=== PATIENT | male | born 1945 | race Caucasian/White ===

== ENCOUNTER → 2024-02-28 14:00 | Outpatient (REF) | payer MEDICARE, OTHER, SELFPAY | LOC: RAD 14:00 | PROVIDERS: ATTENDING PHYSICIAN Surgery Vascular Surgery; FAMILY PHYSICIAN Family Medicine | DX: I65.23 Occlusion and stenosis of bilateral carotid arteries (principal) | CPT/HCPCS: 93880 ==

== ENCOUNTER → 2024-05-18 08:18 | Outpatient (REF) | payer MEDICARE, OTHER, SELFPAY ==
[2024-05-18 09:24] LABS: % Basophils 0.9 % (0-2); % Eosinophils 1.9 % (0-6); % Immature Granulocytes 0.6 % (0-0.5); % Lymphocytes 16.9 % (20.5-51.1); % Monocytes 8.4 % (1.7-9.3); % Neutrophils 71.3 % (42.2-75.2); Absolute Basophils 0.1 10^3/uL (0-0.2); Absolute Eosinophils 0.2 10^3/uL (0-0.7); Absolute Immature Granulocytes 0.1 10^3/uL (0-0.05); Absolute Lymphocytes 1.3 10^3/uL (1.2-3.4); Absolute Monocytes 0.7 10^3/uL (0.1-0.6); Absolute Neutrophils 5.5 10^3/uL (1.4-6.5); Hematocrit 47.3 % (39.0-52.0); Hemoglobin 16.3 g/dL (13.0-18.0); Mean Corp Hgb Conc. 34.5 g/dL (33.0-37.0); Mean Corpuscular Hgb 29.9 pg (27.0-31.0); Mean Corpuscular Volume 86.6 fL (80.0-94.0); Mean Platelet Volume 10.2 fL (7.4-10.4); Nucleated Red Blood Cells % 0 % (-); Platelet Count 234 10^3/uL (130-400); Red Blood Cell Count 5.46 10^6/uL (4.70-6.10); Red Cell Dist. Width 13.8 % (11.5-14.5); White Blood Cell Count 7.8 10^3/uL (4.8-10.8)
[2024-05-18 09:53] LABS: ALT (SGPT) 54 U/L (0-50); AST (SGOT) 36 U/L (17-59); Albumin 4.3 g/dl (3.5-5.0); Alkaline Phosphatase 88 U/L (38-126); Blood Urea Nitrogen 16 mg/dl (9-20); Calcium 9.7 mg/dl (8.4-10.2); Carbon Dioxide 25 mmol/L (22-30); Chloride 104 mmol/L (98-107); Glucose 89 mg/dl (70-99); Potassium 4.6 mmol/L (3.5-5.1); Sodium 141 mmol/L (135-145); Total Bilirubin 0.8 mg/dl (0.2-1.3); Total Protein 6.8 g/dl (6.3-8.2); eGFR 55.88
[2024-05-18 10:28] LABS: TSH 4.15 uIU/ml (0.47-4.68)
== END ==
LOC: REG 08:18
PROVIDERS: ATTENDING PHYSICIAN Nurse Practitioner Family
DX: R41.0 Disorientation, unspecified (principal); G31.84 Mild cognitive impairment of uncertain or unknown etiology; E78.2 Mixed hyperlipidemia; I25.10 Atherosclerotic heart disease of native coronary artery without angina pectoris; Z95.5 Presence of coronary angioplasty implant and graft; Z79.01 Long term (current) use of anticoagulants; N18.31 Chronic kidney disease, stage 3a; I12.9 Hypertensive chronic kidney disease with stage 1 through stage 4 chronic kidney disease, or unspecified chronic kidney disease; I65.23 Occlusion and stenosis of bilateral carotid arteries; I73.9 Peripheral vascular disease, unspecified
CPT/HCPCS: 36415; 80053; 84443; 85025

== ENCOUNTER → 2024-05-28 08:00 | Outpatient (REF) | payer MEDICARE, OTHER, SELFPAY | LOC: MRI 08:00 | PROVIDERS: ATTENDING PHYSICIAN Nurse Practitioner Family; FAMILY PHYSICIAN Family Medicine | DX: R41.0 Disorientation, unspecified (principal) | CPT/HCPCS: 70553; A9575 ==

== ENCOUNTER → 2024-08-29 08:47 | Outpatient (REF) | payer MEDICARE, OTHER, SELFPAY | LOC: RAD 08:47 | PROVIDERS: ATTENDING PHYSICIAN Registered Nurse | DX: I73.9 Peripheral vascular disease, unspecified (principal); I65.23 Occlusion and stenosis of bilateral carotid arteries | CPT/HCPCS: 93880; 93922; 93925 ==

== ENCOUNTER → 2024-09-01 11:48 | Outpatient (REF) | payer MEDICARE, OTHER, SELFPAY | LOC: RAD 11:48 | PROVIDERS: ATTENDING PHYSICIAN Nurse Practitioner Family | DX: M79.661 Pain in right lower leg (principal) | CPT/HCPCS: 93971 ==

== ENCOUNTER → 2024-11-24 08:48 | Outpatient (REF) | payer MEDICARE, OTHER, SELFPAY | LOC: RAD 08:48 | PROVIDERS: ATTENDING PHYSICIAN Family Medicine | DX: R31.29 Other microscopic hematuria (principal) | CPT/HCPCS: 76770 ==

== ENCOUNTER → 2025-03-13 08:51 | Outpatient (REF) | payer MEDICARE, OTHER, SELFPAY | LOC: RAD 08:51 | PROVIDERS: ATTENDING PHYSICIAN Surgery Vascular Surgery; FAMILY PHYSICIAN Family Medicine | DX: I73.9 Peripheral vascular disease, unspecified (principal); I65.23 Occlusion and stenosis of bilateral carotid arteries | CPT/HCPCS: 93880; 93922; 93925 ==

== ENCOUNTER 2025-03-21 08:38 | Inpatient (IN) | payer MEDICARE, OTHER, SELFPAY ==
[2025-03-19] VITALS (7 sets, daily range): BP systolic 154–171; BP diastolic 70–105; BMI 23.0
[2025-03-19 14:16] LABS: Hematocrit 49.2 % (39.0-52.0); Hemoglobin 16.4 g/dL (13.0-18.0); Mean Corp Hgb Conc. 33.3 g/dL (33.0-37.0); Mean Corpuscular Volume 89.3 fL (80.0-94.0); Nucleated Red Blood Cells % 0 % (-); Platelet Count 234 10^3/uL (130-400); Red Cell Dist. Width 13.9 % (11.5-14.5)
--- NOTE | 2025-03-19 14:25 | ED.GENMED ---
History of Present Illness
General
Chief Complaint: Change in Mental Status
Source: patient and family
Exam Limitations: dementia
Time Seen by Provider: 03/19/25 14:06
Nursing documentation reviewed up to this point in time: agreed with
History of Present Illness
History of Present Illness:
Patient is an 79-year-old male with a history of dementia, CAD hypertension hyperlipidemia AR who presents to the ER for evaluation. Daughter at bedside reports patient does have dementia diagnosed in 2019 however has worsened over the past 2 days.
She reports that he tried to walk out of his house and when his tried to stop him he fell sustaining skin tears to his hands. He did not hit his head. His was there with him. Daughter reports he is definitely more confused than normal.
Daughter reports this is the first time patient tries to leave his house.
Patient is awake alert he is unable to give history he does not recall falling. He is confused .
Past History
Past History
ED Past Medical History: HTN, Hypercholesterolemia and Other (left lung scar tissue, Pleural effusion, Pericarditis,)
ED Past Surgical History: Cardiac (Stents), Orthopedic and Other (Hernia)
Social History
Tobacco: Former smoker
Alcohol: None
Drug: None
Personal:
Living: with family
Employment: Employed
Family History
Family History: Negative Early CAD (no hx of DVT, PE)
Review of Systems
Review of Systems
Unable to obtain full review of systems at this time due to: dementia
Other source history: family
All Other Systems: ROS reviewed and negative except as documented in HPI and ROS
Phy Exam
General Physical Exam
General Presentation: no apparent distress
General age: appears stated age
General Skin: warm and dry
General Habitus: normal
General Mental: confused
General Hydration: dry mucous membranes
ENT Exam
ENT Exam: EOMI
Cardiovascular Exam
Cardiovascular Exam: regular rate/rhythm, no murmur and normal peripheral pulses
Pulmonary Exam
Pulmonary Exam: lungs clear and no respiratory distress
Neurological Exam
Neurological Exam: alert and oriented x3
Musculoskeletal Exam
Musculoskeletal Exam: full ROM and other (Abrasions to bilateral hands no obvious head injury no bony cervical thoracic or lumbar tenderness full range of motion all extremities)
Skin Exam
Skin Exam: normal color and warm/dry
Psychiatric Exam
Psychiatric Exam: normal mood/affect
Course
Orders/Labs/Results
Orders:
Orders
03/19/25 Lunch
Regular
At Your Request: Limited Participation
03/19/25 14:09
CBC/With Diff [Complete Blood Count/With Diff] Urgent
Comprehensive Metabolic Panel Urgent
Creatine Phosphokinase Urgent
Comment: ADD ON
03/19/25 14:32
0.9% Sodium Chloride 500 ml [Nss] 500 ml IV BOLUS
03/19/25 15:02
Case Management Consult ONCE
Case Management Consult: Discharge Planning
Requested By:: PT/FAMILY
03/19/25 15:39
UA Reflex to Culture [Urinalysis Reflex To Culture] Urgent
Date Specimen was Collected: 03/19/25
Time Specimen was Collected: 15:38
Urine Microscopic Reflex Cult Urgent
03/19/25 16:58
CT Head W/o Iv Contrast Urgent
Comment:
Reason For Exam: confusion/fall
03/19/25 17:10
Electrocardiogram (*1) Stat
Reason for Study: Other
Other Reason for Exam: chest pain
EKG- Treatment ONCE
03/19/25 18:03
Add On- LAB Routine
Tests Added?: Creatine Kinase
03/19/25 19:17
Admit/Transfer Patient As Directed
Co-Sign Provider:
Level of Care: Observation services
Assign to:: Medical/Surgical
Physician / Group: Mckay Ventura
Diagnosis: Dementia Delirium Unclear Etiology
Reason for Hospitalization: Dementia Delirium Unclear Etiology
PRN Pain Medication Management As Directed
May give lesser potent ordered pain med per pt: Yes
preference::
Protocol:: Medication orders for pain may be administered in a
manner that supports deferring to patient preference
when the pt is:
- Requesting an ordered lesser potent pain medication.
Least to most potent pain medications are defined
as: acetaminophen < NSAID < tramadol < opioids
(morphine, oxycodone, hydromorphone).
- Requesting a lesser dose of the same medication IF
ORDERED.
- Requesting a less intrusive route of administration
if both routes are prescribed by the provider (PO <
IV).
03/19/25 19:20
Code Status As Directed
Resuscitation Status: Full Code
03/19/25 20:48
Acetaminophen [Tylenol] 650 mg PO Q4HPRN PRN
Bisacodyl [Dulcolax] 10 mg RECTAL [id number] PRN
Docusate W/Senna [Senokot-S] 1 tablet PO BIDPRN PRN
Polyethylene Glycol Powder [Miralax] 17 grams PO DAILYPRN PRN
Prochlorperazine [Compazine] 5 mg IV Q6HPRN PRN
Risperidone [Risperdal] 0.25 mg PO Q6HPRN PRN
03/19/25 20:48
Activity As Directed
Activity Level: With Assistance
Precautions As Directed
Type of Precautions: Other
Comment: fall precautions
Vital Signs As Directed
Frequency: Per unit guidelines
Restraints - Non Violent As Directed
Justification-Patient:: 2-Protective Intervention
Restraint Type-: Four Side Rails
Lola-chair
Apply From (date): 03/19/25
Apply from (time): 19:24
Remove (date): 03/20/25
Remove (time): 23:59
DX Deep Vein Thrombosis Video Routine
03/19/25 22:00
Artificial Tears (Pf) [Refresh Eye Drops (Pf)] 1 drops OPHTH QID
Risperidone [Risperdal] 0.25 mg PO HS
03/20/25 06:00
Basic Metabolic Panel IN AM
Complete Blood Count/No Diff IN AM
Magnesium IN AM
03/20/25 08:00
Aspirin Low Dose EC [Aspir Low (Enteric Coated)] 81 mg PO DAILY
Finasteride [Proscar] 5 mg PO DAILY
Metoprolol Xl [Toprol Xl] 12.5 mg PO DAILY
Multivitamin [Theragran] 1 tablet PO DAILY
Rosuvastatin Calcium [Crestor] 20 mg PO DAILY
03/20/25 18:00
Enoxaparin Sodium [Lovenox] 40 mg SC QPM
Abnormal Lab Results
03/19/25 03/19/25
14:09 15:39
Absolute Neuts (auto) 8.0 H 10^3/uL
(1.4-6.5)
Absolute Lymphs (auto) 0.9 L 10^3/uL
(1.2-3.4)
Absolute Monos (auto) 0.7 H 10^3/uL
(0.1-0.6)
Neutrophils % 82.2 H %
(42.2-75.2)
Lymphocytes % 9.2 L %
(20.5-51.1)
Sodium 147 H mmol/L
(135-145)
Potassium 5.5 H mmol/L
(3.5-5.1)
Chloride 113 H mmol/L
(98-107)
Glucose 143 H mg/dl
(70-99)
Creatine Kinase 51 L U/L
(55-170)
Ur Occult Blood Reflex 1+ A
(Negative)
Urine Albumin (Reflex) 1+ A
(Neg - Trace)
03/19/25 14:09
03/19/25 14:09
Vital Signs
Initial and Last Documented VS:
Initial Vital Signs
Temp Pulse Resp BP Pulse Ox
98.3 F 100 16 154/90 95
03/19/25 13:09 03/19/25 13:09 03/19/25 13:09 03/19/25 13:09 03/19/25 13:09
Last Documented Vital Signs
Temp Pulse Resp BP Pulse Ox
97.4 F 73 16 171/83 93
03/19/25 20:57 03/19/25 20:57 03/19/25 20:57 03/19/25 20:57 03/19/25 20:57
MDM/Problems Addressed
Differential Diagnosis Includes:
Not limited to worsening dementia, dehydration UTI abrasions
MDM/Problems Addressed:
Patient is an 79-year-old male with dementia however not on medication presents for increasing confusion. Patient tried to walk out of his house try to stop him he did fall and hit his hands. He does have abrasions to his hands but did not
hit his head was there to witness. He is not on blood thinners. He presents awake alert he is confused more confusion than normal as per daughter. He does follow commands afebrile white count normal hemoglobin stable. He appears minimally
dehydrated was given a small 500 bolus of fluids sodium was elevated at 147 potassium 5.5 normal renal function. Urinalysis done however micro pending does not appear infected. Will order CT head however patient becoming agitated and daughter does
not feel that will be able to care for patient at home. Patient was seen by case management he will need to be involved for possible placement. Daughter also requestsing possible psych consult
Chronic conditions affecting care:
dementia
*Radiology
Radiology exam reviewed: radiology read reviewed
*Pulse Oximetry
SaO2: 95
Oxygen Mode of Delivery: Room air
Patient hypoxic: no
*EKG
Interpreted by ED Provider?: Yes
Interpretation: normal
Comparison EKG: no comparison EKG present
Heart Rate: 69
Rate: normal
Rhythm: sinus
*Critical Care Note
Total Time (30-74mins, 75-104mins- exclusive of procedures): Not Applicable
ED Attending Note
-
Portions of this chart may have been created with voice recognition software.� Occasional wrong word or��sound alike� substitutions may have occurred due to the inherent limitations of voice recognition software.
Discharge Plan
Departure
Patient Disposition: Admit
Date of Disposition: 03/19/25
Time of Disposition: 17:08
Admit to: Med/Surg
Admit to doctor: hospitalist
Presentation/result/management discussed w/ accepting MD/DO: Hospitalist
Patient with high blood pressure during this ER visit?: Yes
Condition: Fair
Covid-19: Not Applicable
Discharge Problem:
Altered mental status
Interventions
Interventions:
*Risk Screen - Suicide Last Done: 03/19/25 13:09
*Neglect/Abuse Screening Last Done: 03/19/25 13:09
*ED COVID-19 Vaccine History Last Done: 03/19/25 13:09
*Nursing Disposition Last Done: 03/19/25 20:45
ED- Neurological Assessment Last Done: 03/19/25 13:17
Discharge Date and Time
Discharge Date/Time: 03/19/25 20:45
[2025-03-19] MEDS: NSS 500 IV (14:39)
[2025-03-19 14:48] LABS: ALT (SGPT) 33 U/L (0-50); AST (SGOT) 25 U/L (17-59); Albumin 4.6 g/dl (3.5-5.0); Alkaline Phosphatase 80 U/L (38-126); Blood Urea Nitrogen 18 mg/dl (9-20); Calcium 9.8 mg/dl (8.4-10.2); Carbon Dioxide 26 mmol/L (22-30); Chloride 113 mmol/L (98-107); Glucose 143 mg/dl (70-99); Potassium 5.5 mmol/L (3.5-5.1); Sodium 147 mmol/L (135-145); Total Protein 7.3 g/dl (6.3-8.2); eGFR > 60.00
--- NOTE | 2025-03-19 15:55 | CM ---
Received consult, met with daughter Cherry at bedside. Pt lives with his in 1 story home, 2 [address]. Independent at baseline with ADLs, personal care and ambulation. NO DME.
Per Cherry, pt has history of dementia, becoming increasingly confused, fell earlier today, this is his first fall.
Pt and have someone who comes in twice a week to help with cleaning and meal prep, also have someone who comes once a week to help with paperwork, pt's 's brother recently.
Family is concerned pt may try to leave home at night, they do have cameras and alarms set up.
They are interested in additional help at home and possibly looking at a Memory Care Unit for him.
Provided information for [facility] as well as Assisted Living list and list of private pay caregiver agencies.
No other CM needs at this time.
PCP: Juan Aggarwal
Pharmacy: [facility]
[2025-03-19 16:18] LABS: Urine Character Slightly Cloudy (Clear)
--- NOTE | 2025-03-19 17:14 | HPS.HSE ---
Family Physician
-
Family Physician: Juan Aggarwal
Chief Complaint
-
Confusion
History of Present Illness
79M hx dementia, CAD stent, hypertension, hyperlipidemia p/w acute agitation confusion with associate fall. Patient himself poor historian, significant short term memory issues, most of history from records and patient's daughter and 's
reports. Typically AOx3 at baseline, diagnosed with dementia 2019. Patient has had progressive short term memory issues since diagnosis. Meds are managed by . Baseline ambulatory without need for assist device. Patient reportedly was
increasingly agitated at home before he ran out and fell on the steps to his house, witnessed by . No head trauma or loss of consciousness noted. Patient's notes that patient has been having progressive intermittent visual hallucinations
for months. Endorses sundowning. Patient at times up and walking around in the house at night for no apparent reason. Family denies history of falls. Patient denies any significant pain at this time, dysuria, constipation, diarrhea, fever or
chills. Strength 5/5 all extremities no significant limitations on range of motions noted. Labs noted mild hypernatremia and hyperkalemia. Initially hypertensive on ED evaluation 171/108 likely d/t agitation, blood pressure since improved to
154/90. Stable respiratory status on room air. CT head noted no acute abn's. Patient also noted vision issues for the past few months blurry itchy watery typically takes Claritin Daily. Family reports recent work-up with ophthalmology with no
acute issues found.
Medical History
Past Medical History
Past Medical History: Reports Other (as above)
Past Surgical History: Reports Other (as above)
Social History
Tobacco: Non-smoker
Alcohol: None
Drug: None
Personal:
Living: With Family
Family History
Family History: Not pertinent (reviewed)
Allergies / Home Medications
Allergies reflects when Allergies were last updated in [facility].
Home Medications with original date entered in [facility]
Allergy/Medication List:
Allergies
Allergy/AdvReac Type Severity Reaction Status Date / Time
Penicillins Allergy Mild vomitting Verified 03/24/22 16:16
seasonal Allergy runny nose Uncoded 03/24/22 16:16
Home Medications
aspirin 81 mg tablet,delayed release 81 mg PO DAILY 03/19/25
finasteride 5 mg tablet 5 mg PO DAILY 03/19/25
loratadine 10 mg tablet 10 mg PO DAILY PRN seasonal allergies 03/19/25
losartan 25 mg tablet 25 mg PO DAILY 03/19/25
metoprolol succinate 25 mg tablet,extended release 24 hr 12.5 mg PO DAILY 03/19/25
multivitamin 1 tab PO DAILY 03/19/25
rosuvastatin 20 mg tablet 20 mg PO DAILY 03/19/25
Review of Systems
-
A 12 point ROS was completed and negative except as noted: Yes
Constitutional: Reports Other (as below)
Physical Exam
Vital Signs
Vital Signs
Temp Pulse Resp BP Pulse Ox
98.3 F 71 29 166/70 95
03/19/25 13:09 03/19/25 15:35 03/19/25 15:35 03/19/25 15:35 03/19/25 17:09
Physical Exam
General: Other (as below)
Laboratory Results
-
03/19/25 14:09
03/19/25 14:09
Laboratory Results
Total Bilirubin 0.8 mg/dl (0.2-1.3) 03/19/25 14:09
AST 25 U/L (17-59) 03/19/25 14:09
ALT 33 U/L (0-50) 03/19/25 14:09
Alkaline Phosphatase 80 U/L (38-126) 03/19/25 14:09
Impression/Plan
-
ROS
General: Denies fever chills night sweats unexpected weight loss
Neuro: Denies seizure shaking loss of consciousness dizziness vertigo
Psych: reported visual hallucinations confusion
Endocrine: Denies polyuria polydipsia polyphagia heat/cold intolerance
HEENT: Denies blindness epistaxis reports blurry vision itchy eyes watering
Pulmonary: denies coughing hemoptysis sneezing sob dyspnea on exertion
Cardiovascular: denies chest pain palpitations leg swelling
Hematology: denies signs symptoms of anemia easy bruising/bleeding
Gastrointestinal: denies nausea vomiting diarrhea constipation hematemesis hematochezia melena
Genito-Urinary: denies retention incontinence dysuria
Musculoskeletal: denies joint pain weakness
Dermatology: denies rash reports laceration hands from fall
Physical Exam
General: No pallor, cyanosis, or jaundice.
HEENT: Throat clear. EOMI Normocephalic atraumatic
NECK: Supple. No JVD Carotid Bruits
RESPIRATORY: Lungs clear to auscultation. No crackles wheezes stridor
CVS: S1, S2 normal. RRR. No murmur, rub or gallop.
ABDOMEN: Soft, non-tender. No distension. BS+/normal.
EXTREMITIES: No peripheral cyanosis or edema. strength 5/5 all ext's, no significant impairment range of motion ext's noted
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 Able to perform immediate recall, unable to perform delayed recall.
IMPRESSION:
79M hx dementia, b/l carotid stenosis PAD (has regular follow up visits, with associate studies, with vascular Dr Lobo) CAD stent, HTN, HLD p/w acute agitation confusion/delirium unclear etiology resulting in fall with minor injury to hands, no head
trauma. Typically AOx3 baseline with short term memory issues and confusion. Noted history intermittent visual hallucinations, sundowning, behavioral disturbances at night. Patient also has hx seasonal allergies for which he typically takes
Claritin daily. Medications managed by who lives with him
PLAN:
#Possible Acute Delirium Dementia unclear etiology vs progressive Dementia with behavioral disturbances
med/surg Observation
ST/PT/OT eval
fall precautions
CT Head appreciated no acute Abn's
Check Brain MRI
EKG appreciated NSR, no QT prolongation
start risperdal 0.25 mg PO HS
risperdal 0.25 mg Q6HPRN agitation confusion (consider low dose IV haldol if unable to take PO severely agitated)
Psych eval requested
Non-violent restraints prn
#Mild Hypernatremia
#Mild Hyperkalemia
monitor, possibly dehydration, received IVF bolus in ED
#HTN
cont home metoprolol with holding parameters
hold home losartan for now d/t hyperkalemia as above
monitor and titrate antihypertensive regimen as necessary
#HLD
#CAD hx stent
cont ASAS statin
#Allergic Rhinitis, itchy/watery eyes
hold home claritin for now, possible anticholinergic effects exacerbating confusion delirium
Artificial Tears supportive care
#B/L Carotid Stenosis
#PAD
cont outpt follow up with Vascular
DVT ppx Lovenox
Full Code as per patient and patient's daughter Cherry
discussed with patient, patient's Marie, and patient's daughter Cherry
I spent a total of 76 minutes with the patient or on the floor. More than 50% of this time involved counseling and coordination of care.
[2025-03-19 18:04] LABS: Urine Red Blood Cell 0-2 /HPF (0-2); Urine Squamous Cell 0-2 /LPF (Few); Urine White Cell 0-2 /HPF (0-5)
[2025-03-19] MEDS: TYLENOL 650 MG PO (21:11)
[2025-03-19] MEDS: REFRESH EYE DROPS (PF) 1 DROPS OPHTH (21:11)
[2025-03-19] MEDS: RISPERDAL 0.25 MG PO ×2 (21:12→21:33)
[2025-03-19] MEDS: HALDOL 0.5 MG IV (23:08)
[2025-03-20 02:22] VITALS: BP 148/82
--- NOTE | 2025-03-20 02:53 | PTCARENOTE ---
2100 pt arrived from ed, unsteady on feet walked from stretcher to bed. pt oriented to self- confused, angry, would not take redirection. pt has an order for restraints for 4 side rails and jitendra chair. pt would not stay in bed or listen to RN, kept
setting up bed alarm and trying to leave.
2200 pt became combative and was swinging his hand at RN, saying he is getting out of here. Pt already had schedule Risperdal. S/W GABRIEL Garzon - okay to give prn Risperdal and new restraint order for b/ wrist. pt continue to be restless in bed, pulling
at restraints, and kicking. S/w GABRIEL Garzon - Given IV Haldol w/ no effect.
0000 pt continues to be restless, restraints maintained. occassionally yelling out but continues to kick and attempting to remove restraints.
[2025-03-20] MEDS: RISPERDAL 0.25 MG PO ×4 (04:21→22:39)
[2025-03-20 04:27] LABS: Hematocrit 46.0 % (39.0-52.0); Hemoglobin 16.1 g/dL (13.0-18.0); Mean Corp Hgb Conc. 35.0 g/dL (33.0-37.0); Mean Corpuscular Volume 86.0 fL (80.0-94.0); Platelet Count 223 10^3/uL (130-400); Red Cell Dist. Width 13.9 % (11.5-14.5)
[2025-03-20 04:54] LABS: Blood Urea Nitrogen 16 mg/dl (9-20); Calcium 9.6 mg/dl (8.4-10.2); Carbon Dioxide 19 mmol/L (22-30); Chloride 115 mmol/L (98-107); Estimated Creatinine Clearance 65 ml/min; Glucose 125 mg/dl (70-99); Magnesium 2.0 mg/dl (1.6-2.3); Potassium 4.4 mmol/L (3.5-5.1); Sodium 144 mmol/L (135-145); eGFR > 60.00
[2025-03-20 07:00] VITALS: BP 174/91
--- NOTE | 2025-03-20 07:39 | W.PN.HOSP.TC ---
Today's Communication/Plan
-
Brain MRI if possible, would avoid sedatives as likely will exacerbate dementia confusion agitation
cont risperidone as per psych
ST/PT/OT
Assessment / Plan
Assessment / Plan
Physical Exam
General: No pallor, cyanosis, or jaundice.
HEENT: Throat clear. EOMI Normocephalic atraumatic
NECK: Supple. No JVD Carotid Bruits
RESPIRATORY: Lungs clear to auscultation. No crackles wheezes stridor
CVS: S1, S2 normal. RRR. No murmur, rub or gallop.
ABDOMEN: Soft, non-tender. No distension. BS+/normal.
EXTREMITIES: No peripheral cyanosis or edema. strength 5/5 all ext's, no significant impairment range of motion ext's noted
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 Able to perform immediate recall, unable to perform delayed recall.
IMPRESSION:
79M hx dementia, b/l carotid stenosis PAD (has regular follow up visits, with associate studies, with vascular Dr Lobo) CAD stent, HTN, HLD p/w acute agitation confusion/delirium unclear etiology resulting in fall with minor injury to hands, no head
trauma. Typically AOx3 baseline with short term memory issues and confusion. Noted history intermittent visual hallucinations, sundowning, behavioral disturbances at night. Patient also has hx seasonal allergies for which he typically takes
Claritin daily. Medications managed by who lives with him
PLAN:
#Possible Acute Delirium Dementia unclear etiology vs progressive Dementia with behavioral disturbances
med/surg Observation
ST/PT/OT eval appreciated outpt therapy recommended
fall precautions
CT Head appreciated no acute Abn's
Check Brain MRI
EKG appreciated NSR, no QT prolongation
started risperdal 0.25 mg PO HS adjusted to 5PM as per Psych
risperdal 0.25 mg Q6HPRN agitation confusion (consider low dose IV haldol if unable to take PO severely agitated)
Psych eval appreciated
Non-violent restraints prn
#Mild Hypernatremia
#Mild Hyperkalemia
monitor, possibly dehydration, received IVF bolus in ED
electrolyte abn's since resolved
#HTN
cont home metoprolol with holding parameters
hold home losartan for now d/t hyperkalemia as above
monitor and titrate antihypertensive regimen as necessary
#HLD
#CAD hx stent
cont ASAS statin
#Allergic Rhinitis, itchy/watery eyes
hold home claritin for now, possible anticholinergic effects exacerbating confusion delirium
Artificial Tears supportive care
#B/L Carotid Stenosis
#PAD
cont outpt follow up with Vascular
DVT ppx Lovenox
Full Code as per patient and patient's daughter Cherry
discussed with patient and patient's Marie
I spent a total of 45 minutes with the patient or on the floor. More than 50% of this time involved counseling and coordination of care.
Anticipated Discharge: 24 - 48 hours
Subjective/Interval History
-
Date of Service: March 20, 2025
No acute distress. sitting up comfortably in chair. AOx2 disoriented to time. Overnight events noted agitation required prn antipsychotics without much improvement.
Objective Data
-
Labs:
Laboratory Results
03/20/25
04:18
WBC 14.7 H
Hgb 16.1
Hct 46.0
Plt Count 223
Sodium 144
Potassium 4.4
Chloride 115 H
Carbon Dioxide 19 L
BUN 16
Creatinine 0.9
Glucose 125 H
Calcium 9.6
Vital Signs:
Vital Signs
Temp Pulse Resp BP Pulse Ox
97.0 F 99 18 148/82 94
03/19/25 22:28 03/20/25 02:22 03/19/25 22:28 03/20/25 02:22 03/19/25 22:28
I&O
03/19/25 03/20/25 03/21/25
06:59 06:59 06:59
Intake Total 400 / 400
Balance 400 / 400
[2025-03-20] MEDS: THERAGRAN 1 TABLET PO (08:26)
[2025-03-20] MEDS: TOPROL XL 12.5 MG PO (08:26)
[2025-03-20] MEDS: PROSCAR 5 MG PO (08:26)
[2025-03-20] MEDS: CRESTOR 20 MG PO (08:26)
[2025-03-20] MEDS: ASPIR LOW (ENTERIC COATED) 81 MG PO (08:26)
[2025-03-20] MEDS: REFRESH EYE DROPS (PF) 1 DROPS OPHTH ×4 (08:27→20:32)
--- NOTE | 2025-03-20 08:55 | PTOTSP ---
Speech Language Pathology
Pt seen for cognitive-linguistic evaluation via the [facility] Mental Status ([facility]) Examination. Pt with a score of 7/30, indicative of severe cognitive deficits. Able to recall 1/5 words immediately, 0 following a 2 minute delay.
Cueing did not increase accuracy. U
Pt also seen for clinical bedside swallow evaluation. P.O. trials of puree, regular solids, and thin liquids provided. Adequate mastication, bolus formation, and A-P transit noted with no oral residue. No overt signs of aspiration.
Recommend:
(1) Regular solids/thin liquids
(2) General aspiration precautions
(3) Meds as tolerated
(4) CORPORATE SAFETY DIRECTOR to follow for cognitive tx if appropriate pending further workup (if MRI shows acute issue). Given no improvement on recall with cues, pt unlikely to benefit from cognitive tx at this stage of dementia otherwise
--- NOTE | 2025-03-20 11:04 | CS.PSYCHR ---
Consult Summary - Psychiatry
-
Patient is an 79 year old male patient, seen for Psychiatric consultation with a history of dementia and reported agitation. Patient is a poor historian, confused but conversant and cooperative. Attempted to reach to but there was no answer.
Patient has been admitted to the hospital with acute agitation, confusion with associate fall at home. Patient reportedly diagnosed with dementia 2019 but said to be AAOx3 at home at baseline. Ambulates without assistance at home. Appears to have
significant short term memory issues, thought the year was 1997 and was unsure if he had a per RN. 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 He was able to share details on how the different
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 He appears excited to tell us al about this. He does tell us he thinks his is coming here, he did know he was at but did not seem to know why. He tells us he has 2 daughters.
Patient reportedly was increasingly agitated at home before he ran out and fell on the steps to his house, witnessed by . No history of previous falls. No head trauma or loss of consciousness noted.
Patient's had reported that patient has been having progressive intermittent visual hallucinations for months. Endorses sundowning. RN notes that overnight he wanted to leave his room. He was temporally restrained overnight for his safety.
Today, he is up in the chair and not restrained. No agitation noted at this time. Patient did require one dose of Haldol overnight for reported agitation that appears to be related to him being denied the ability to walk around and/or leave his room.
Impression/Recommendations: Dementia, likely progressive with behavioral disturbances vs. delirium of unknown etiology - CT head with no acute abnormalities, Brain MRI has been ordered. Would continue with Risperdal 0.25mg but change time to 5pm to
help prevent sundowning/increased evening confusion leading to agitation. Continue with PRN doses as well. Promote reorientation and as much independence that can safely be given.
--- NOTE | 2025-03-20 14:36 | PTCARENOTE ---
Patient restless, continually trying to get out of bed. Assisted to bathroom to void and have a BM gait steady. Assisted into chair with chair alarm. Needs frequent redirecting. visiting at present .
[2025-03-20 15:00] VITALS: BP 157/76
[2025-03-20] MEDS: LOVENOX 40 MG SC (16:09)
--- NOTE | 2025-03-20 17:13 | PTCARENOTE ---
Patient restless , repetitive questions, forgetful and oriented to himself only . Able to follow simple commands. After visit , pt was agitated, unable to redirect, was wandering out of his room and into other rooms looking for 'that woman
who took all my stuff' Unable to redirect, continually verbalizing how upset he was that 'she took my stuff' . Needs constant supervision and assistance at present. Will follow commands. Did take his scheduled Risperdal and PRN Risperdal with
minimal effect at present. Unable to complete MRI , hospitalist aware . 1:1 supervision maintained by staff for patient safety.
[2025-03-20] MEDS: MELATONIN 5 MG PO (20:32)
[2025-03-20] MEDS: RISPERDAL M-TAB (ORALLY DISINTEGRATING) 0.25 MG PO (20:32)
[2025-03-20 23:38] VITALS: BP 145/60
[2025-03-21] MEDS: HALDOL 0.5 MG IV (01:38)
--- NOTE | 2025-03-21 02:18 | W.PN.UPDATE ---
Update Note
Progress Note Update
Reported by the nursing staff that the patient is agitated, trying to get out of bed multiple times and staff not able to redirect.
During the shift, Extra dose or Risperdal 0.25 mg given, few hours later patient started to be agitated again one time dose of IV Haldol 0.5mg given. Patient is tried to rip his IV access. Soft restriant ordered.
[2025-03-21 07:15] VITALS: BP 142/94
[2025-03-21] MEDS: THERAGRAN 1 TABLET PO (07:41)
[2025-03-21] MEDS: REFRESH EYE DROPS (PF) 1 DROPS OPHTH ×4 (07:41→19:44)
[2025-03-21] MEDS: PROSCAR 5 MG PO (07:41)
[2025-03-21] MEDS: RISPERDAL 0.25 MG PO ×2 (07:41→19:44)
[2025-03-21] MEDS: ASPIR LOW (ENTERIC COATED) 81 MG PO (07:41)
[2025-03-21] MEDS: TOPROL XL 12.5 MG PO (07:47)
--- NOTE | 2025-03-21 07:49 | W.PN.HOSP.TC ---
Today's Communication/Plan
-
see a/p
Assessment / Plan
Assessment / Plan
Physical Exam
General: No pallor, cyanosis, or jaundice.
HEENT: Throat clear. EOMI Normocephalic atraumatic
NECK: Supple. No JVD Carotid Bruits
RESPIRATORY: Lungs clear to auscultation. No crackles wheezes stridor
CVS: S1, S2 normal. RRR. No murmur, rub or gallop.
ABDOMEN: Soft, non-tender. No distension. BS+/normal.
EXTREMITIES: No peripheral cyanosis or edema. strength 5/5 all ext's, no significant impairment range of motion ext's noted
EMS COORDINATOR: AOx2 disoriented to time, significant short term memory issues noted conversant coherent for the most part. Able to perform immediate recall, unable to perform delayed recall.
IMPRESSION:
79M hx dementia, b/l carotid stenosis PAD (has regular follow up visits, with associate studies, with vascular Dr Lobo) CAD stent, HTN, HLD p/w acute agitation confusion/delirium unclear etiology resulting in fall with minor injury to hands, no head
trauma. Typically AOx3 baseline with short term memory issues and confusion. Noted history intermittent visual hallucinations, sundowning, behavioral disturbances at night. Patient also has hx seasonal allergies for which he typically takes
Claritin daily. Medications managed by who lives with him
PLAN:
#Acute Delirium Dementia vs progressive Dementia with behavioral disturbances
med/surg
ST/PT/OT eval appreciated outpt therapy recommended
fall precautions
CT Head appreciated no acute Abn's
Brain MRI appreciated no acute abn's
EKGs reviewed appreciated consistently NSR, no significant QT prolongation
risperidone titrated up to 0.25 mg BID
prn risperidone remains available
Psych eval appreciated
Non-violent restraints, 1:1 prn agitation, low dose IV haldol as necessary
Family interested in memory care placement, case mgmt eval appreciated placement pending
#Mild Hypernatremia
#Mild Hyperkalemia
monitor, possibly dehydration, received IVF bolus in ED
electrolyte abn's since resolved
#HTN
cont home metoprolol with holding parameters
home losartan briefly held d/t to hyperkalemia since resumed with resolution electrolyte abn
monitor and titrate antihypertensive regimen as necessary
#HLD
#CAD hx stent
cont ASAS statin
#Allergic Rhinitis, itchy/watery eyes
hold home claritin for now, possible anticholinergic effects exacerbating confusion delirium
Artificial Tears supportive care
#B/L Carotid Stenosis
#PAD
cont outpt follow up with Vascular
DVT ppx Lovenox
Full Code as per patient and patient's daughter Cherry
discussed with patient and patient's Marie
I spent a total of 45 minutes with the patient or on the floor. More than 50% of this time involved counseling and coordination of care.
Anticipated Discharge: 24 - 48 hours
Subjective/Interval History
-
Date of Service: March 21, 2025
No acute distress appears comfortable sitting in chair. 1:1 present. Some jitteriness noted, conversant, confused but cooperative at this time.
Objective Data
-
Vital Signs:
Vital Signs
Temp Pulse Resp BP Pulse Ox
97.6 F 114 16 142/94 97
03/21/25 07:15 03/21/25 07:15 03/21/25 07:15 03/21/25 07:15 03/21/25 07:15
I&O
03/20/25 03/21/25 03/22/25
06:59 06:59 06:59
Intake Total 400 / 400
Output Total 200 / 200
Balance 400 / 400 -200 / -200
[2025-03-21] MEDS: CRESTOR 20 MG PO (08:01)
--- NOTE | 2025-03-21 09:42 | PTCARENOTE ---
Patient restless in bed, oriented to himself only. Thought he was at work. Restraints removed, pt remains with 1:1 staff supervision for safety. Needs redirection frequently. Able to follow simple commands. Out of bed in chair at present .
called here spoke with this nurse and update provided .
--- NOTE | 2025-03-21 11:46 | CM ---
CM reviewed chart, patient off floor. Call to patients , Marie. CM discussed PT/OT recommendations- home with 24 hr care/ vs outpatient therapy. feels she cannot care for patient at home and is leaning more towards a Memory Care
facility rather than home with 24 hr care. Marie reports her daughter, Cherry, is also POA and is involved in patients care. Marie reports patient has been increasingly confused at home and does not feel he is safe at home. also interested
in potential respite stay. agreeable to referral to [facility]. CM spoke with Jena Fuller [phone], provided with and daughters contact number, will work on facilities for patient. CM will continue to follow for all discharge
planning needs.
Plan; family looking for Memory Care Placement, referral to [facility], remains on 1:1
--- NOTE | 2025-03-21 12:01 | W.PN.UPDATE ---
Update Note
Progress Note Update
patient seen chart reviewed. discussed w dr morales and nursing. the patient had a tumultuous night and was in restraints . he received prn risperdal and haldol. he has since calmed. he is out of restraints and successfully negotiated mri this am.
when i saw him he was pleasantly confused. noted an ecg with qtc of 670 which was repeated a few moments ago w nl qtc. the ecg done yesterday and the day before also had nl qtc. would continue w risperdal o.25 mg bid for now. be careful if using
any meds which can prolong qtc eg iv haldol which he received during the night. would also try to avoid seroquel lexapro celexa. mri shows nothing acute. mild senescent white matter changes. will check in on him tomorrow.
[2025-03-21 15:42] VITALS: BP 132/67
[2025-03-21] MEDS: LOVENOX 40 MG SC (17:04)
[2025-03-21] MEDS: RISPERDAL M-TAB (ORALLY DISINTEGRATING) 0.25 MG PO (21:51)
[2025-03-21] MEDS: MELATONIN 5 MG PO (21:51)
[2025-03-21 23:08] VITALS: BP 157/85
[2025-03-22 07:45] VITALS: BP 124/74
--- NOTE | 2025-03-22 09:18 | W.PN.HOSP.TC ---
Today's Communication/Plan
-
see a/p
Assessment / Plan
Assessment / Plan
Physical Exam
General: No pallor, cyanosis, or jaundice.
HEENT: Throat clear. EOMI Normocephalic atraumatic
NECK: Supple. No JVD Carotid Bruits
RESPIRATORY: Lungs clear to auscultation. No crackles wheezes stridor
CVS: S1, S2 normal. RRR. No murmur, rub or gallop.
ABDOMEN: Soft, non-tender. No distension. BS+/normal.
EXTREMITIES: No peripheral cyanosis or edema
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 Able to perform immediate recall, unable to perform delayed recall.
IMPRESSION:
79M hx dementia, b/l carotid stenosis PAD (has regular follow up visits, with associate studies, with vascular Dr Lobo) CAD stent, HTN, HLD p/w acute agitation confusion/delirium unclear etiology resulting in fall with minor injury to hands, no head
trauma. Typically AOx3 baseline with short term memory issues and confusion. Noted history intermittent visual hallucinations, sundowning, behavioral disturbances at night. Patient also has hx seasonal allergies for which he typically takes
Claritin daily. Medications managed by who lives with him
PLAN:
#Acute Delirium Dementia vs progressive Dementia with behavioral disturbances
med/surg
ST/PT/OT eval appreciated outpt therapy recommended
fall precautions
CT Head appreciated no acute Abn's
Brain MRI appreciated no acute abn's
EKGs reviewed appreciated consistently NSR, no significant QT prolongation
prn risperidone remains available
Psych eval appreciated risperidone titrated up to 0.25 mg morning and 0.5 mg bedtime
Non-violent restraints 1:1 prn agitation, low dose IV haldol as necessary
Family interested in memory care placement, case mgmt eval appreciated placement pending
#Right Shoulder Pain
Likely arthritis
Lidocaine patch and tylenol prn
#Mild Hypernatremia
#Mild Hyperkalemia
monitor, possibly dehydration, received IVF bolus in ED
electrolyte abn's since resolved
#HTN
cont home metoprolol with holding parameters
home losartan briefly held d/t to hyperkalemia since resumed with resolution electrolyte abn
monitor and titrate antihypertensive regimen as necessary
#HLD
#CAD hx stent
cont ASAS statin
#Allergic Rhinitis, itchy/watery eyes
hold home claritin for now, possible anticholinergic effects exacerbating confusion delirium
Artificial Tears supportive care
#B/L Carotid Stenosis
#PAD
cont outpt follow up with Vascular
DVT ppx Lovenox
Full Code
discussed with patient and patient's Marie
I spent a total of 40 minutes with the patient or on the floor. More than 50% of this time involved counseling and coordination of care.
Anticipated Discharge: 24 - 48 hours
Subjective/Interval History
-
Date of Service: March 22, 2025
Lethargic, likely d/t overnight sedation for agitation, but arousable. Appears comfortable at this time.
Objective Data
-
Vital Signs:
Vital Signs
Temp Pulse Resp BP Pulse Ox
98 F 84 16 124/74 98
03/22/25 07:45 03/22/25 07:45 03/22/25 07:45 03/22/25 07:45 03/22/25 07:45
I&O
03/21/25 03/22/25 03/23/25
06:59 06:59 06:59
Intake Total 690 / 690
Output Total 200 / 200
Balance -200 / -200 690 / 690
[2025-03-22] MEDS: CRESTOR 20 MG PO (09:36)
[2025-03-22] MEDS: THERAGRAN 1 TABLET PO (09:36)
[2025-03-22] MEDS: COZAAR 25 MG PO (09:36)
[2025-03-22] MEDS: ASPIR LOW (ENTERIC COATED) 81 MG PO (09:36)
[2025-03-22] MEDS: RISPERDAL 0.25 MG PO (09:36)
[2025-03-22] MEDS: PROSCAR 5 MG PO (09:36)
[2025-03-22] MEDS: REFRESH EYE DROPS (PF) 1 DROPS OPHTH ×3 (09:37→21:42)
[2025-03-22] MEDS: TOPROL XL 12.5 MG PO (09:37)
--- NOTE | 2025-03-22 09:47 | CM ---
Chart reviewed and medical case manager met with patient this am, patient is on 1:1 nursing, medical case manager received a call from Elizabeth [phone], at [facility] and they have a nurse coming to see patient today at 11am, all clinicals
faxed to Elizabeth at [phone] at [facility]
Plan; Placement at personal care facility.
--- NOTE | 2025-03-22 11:48 | W.PN.UPDATE ---
Update Note
Progress Note Update
patient seen chart reviewed. discussed with nursing and with case mgt. patient is not sleeping well at night and has wound up being medicated in the wee hours of the night with prn risperdal. he is being considered for memory care. need to try
and get him off one to one nursing which we will try today in the hopes he will be accepted for memory care. will increase hs risperdal to o.5 mg as he is on a very small dose right now which is 0.25 mg bid which is not holding him throughout the
night.
[2025-03-22] MEDS: REFRESH EYE DROPS (PF) OPHTH (13:00)
[2025-03-22 15:51] VITALS: BP 140/70
[2025-03-22] MEDS: TYLENOL 650 MG PO (17:03)
[2025-03-22] MEDS: LOVENOX 40 MG SC (17:05)
[2025-03-22] MEDS: LIDOCAINE 4% PATCH 1 PATCH TOPICAL (18:21)
[2025-03-22] MEDS: REMOVE LIDOCAINE PATCH 1 PATCH REMOVE (19:26)
[2025-03-22] MEDS: RISPERDAL 0.5 MG PO (21:42)
[2025-03-22 23:00] VITALS: BP 124/63
--- NOTE | 2025-03-23 06:57 | W.PN.HOSP.TC ---
Today's Communication/Plan
-
see a/p
Assessment / Plan
Assessment / Plan
Physical Exam
General: No pallor, cyanosis, or jaundice.
HEENT: Throat clear. EOMI Normocephalic atraumatic
NECK: Supple. No JVD Carotid Bruits
RESPIRATORY: Lungs clear to auscultation. No crackles wheezes stridor
CVS: S1, S2 normal. RRR. No murmur, rub or gallop.
ABDOMEN: Soft, non-tender. No distension. BS+/normal.
EXTREMITIES: No peripheral cyanosis or edema
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 Able to perform immediate recall, unable to perform delayed recall.
IMPRESSION:
79M hx dementia, b/l carotid stenosis PAD (has regular follow up visits, with associate studies, with vascular Dr Lobo) CAD stent, HTN, HLD p/w acute agitation confusion/delirium unclear etiology resulting in fall with minor injury to hands, no head
trauma. Typically AOx3 baseline with short term memory issues and confusion. Noted history intermittent visual hallucinations, sundowning, behavioral disturbances at night. Patient also has hx seasonal allergies for which he typically takes
Claritin daily. Medications managed by who lives with him
PLAN:
#Acute Delirium Dementia vs progressive Dementia with behavioral disturbances
med/surg
ST/PT/OT eval appreciated outpt therapy recommended
fall precautions
CT Head appreciated no acute Abn's
Brain MRI appreciated no acute abn's
EKGs reviewed appreciated consistently NSR, no significant QT prolongation
prn risperidone remains available
Psych eval appreciated risperidone titrated up to 0.25 mg morning and 0.5 mg bedtime
Non-violent restraints 1:1 prn agitation, low dose IV haldol if absolutely necessary
Family interested in memory care placement, case mgmt eval appreciated placement pending
#Right Shoulder Pain
Likely arthritis
Lidocaine patch and tylenol prn
#Mild Hypernatremia
#Mild Hyperkalemia
monitor, possibly dehydration, received IVF bolus in ED
electrolyte abn's since resolved
#HTN
cont home metoprolol with holding parameters
home losartan briefly held d/t to hyperkalemia since resumed with resolution electrolyte abn
monitor and titrate antihypertensive regimen as necessary
#HLD
#CAD hx stent
cont ASAS statin
#Allergic Rhinitis, itchy/watery eyes
hold home claritin for now, possible anticholinergic effects exacerbating confusion delirium
Artificial Tears supportive care
#B/L Carotid Stenosis
#PAD
cont outpt follow up with Vascular
DVT ppx Lovenox
Full Code
Case mgmt Consult Appreciated discharge planning Memory Care Unit patient accepted but no bed till 03/27/25
discussed with patient and patient's Marie
I spent a total of 35 minutes with the patient or on the floor. More than 50% of this time involved counseling and coordination of care.
Anticipated Discharge: > 48 hours
Subjective/Interval History
-
Date of Service: March 23, 2025
No acute distress, sitting up comfortably in chair. Pleasantly confused, cooperative. No prn medications required overnight. 1:1 present
Objective Data
-
Vital Signs:
Vital Signs
Temp Pulse Resp BP Pulse Ox
99.4 F 79 18 124/63 93
03/22/25 23:00 03/22/25 23:00 03/22/25 23:00 03/22/25 23:00 03/22/25 23:00
I&O
03/21/25 03/22/25 03/23/25
06:59 06:59 06:59
Intake Total 690 / 690 120 / 120
Output Total 200 / 200
Balance -200 / -200 690 / 690 120 / 120
[2025-03-23 07:05] VITALS: BP 126/65
[2025-03-23] MEDS: LIDOCAINE 4% PATCH 1 PATCH TOPICAL (09:52)
[2025-03-23] MEDS: REFRESH EYE DROPS (PF) 1 DROPS OPHTH ×2 (09:54→21:08)
[2025-03-23] MEDS: CRESTOR 20 MG PO (09:54)
[2025-03-23] MEDS: THERAGRAN 1 TABLET PO (09:54)
[2025-03-23] MEDS: PROSCAR 5 MG PO (09:54)
[2025-03-23] MEDS: TOPROL XL 12.5 MG PO (09:54)
[2025-03-23] MEDS: COZAAR 25 MG PO (09:55)
[2025-03-23] MEDS: ASPIR LOW (ENTERIC COATED) 81 MG PO (09:55)
[2025-03-23] MEDS: RISPERDAL 0.25 MG PO (09:55)
--- NOTE | 2025-03-23 10:13 | W.PN.UPDATE ---
Update Note
Progress Note Update
patient seen chart reviewed. spoke with nursing. mr rwoe was awake and alert this am. he was calmly lying in bed. he does remain confused but is cooperative. he has not had a prn since the wee hours of the . he slept better according to nsg
with inc in hs risperdal. would not make any changes at this point. psych will sign off please let us know if you need us to see him again.
[2025-03-23 10:27] VITALS: BP 142/70; O2SAT 97
--- NOTE | 2025-03-23 13:26 | CM ---
CM reviewed chart, DME form signed by Hospitalist, faxed to Elizabeth at [facility] (fax: [phone]). Per Elizabeth, can accept patient Wednesday, cannot accept over weekend, have admissions on Wednesday, earliest is Wednesday. Update to Hospitalist. Call to
patients , Marie, discussed plan for d/c Wednesday when facility can accept. CM will continue to follow for all discharge planning needs.
Plan; [facility], plan Wednesday
[facility]: [phone]
[2025-03-23] MEDS: REFRESH EYE DROPS (PF) OPHTH ×2 (15:01→17:44)
[2025-03-23 15:28] VITALS: BP 144/77
[2025-03-23] MEDS: LOVENOX 40 MG SC (17:44)
[2025-03-23] MEDS: REMOVE LIDOCAINE PATCH 1 PATCH REMOVE (20:19)
[2025-03-23] MEDS: RISPERDAL 0.5 MG PO (21:08)
[2025-03-23 23:34] VITALS: BP 133/75
[2025-03-24 07:07] VITALS: BP 133/76
[2025-03-24] MEDS: CRESTOR 20 MG PO (08:34)
[2025-03-24] MEDS: REFRESH EYE DROPS (PF) 1 DROPS OPHTH ×4 (08:34→21:18)
[2025-03-24] MEDS: ASPIR LOW (ENTERIC COATED) 81 MG PO (08:35)
[2025-03-24] MEDS: COZAAR 25 MG PO (08:35)
[2025-03-24] MEDS: TOPROL XL 12.5 MG PO (08:35)
[2025-03-24] MEDS: THERAGRAN 1 TABLET PO (08:36)
[2025-03-24] MEDS: LIDOCAINE 4% PATCH 1 PATCH TOPICAL (08:37)
[2025-03-24] MEDS: PROSCAR 5 MG PO (08:37)
[2025-03-24] MEDS: RISPERDAL 0.25 MG PO (08:37)
--- NOTE | 2025-03-24 09:36 | W.PN.HOSP.TC ---
Today's Communication/Plan
-
increase metoprolol
pain control
PT/OT
discharge planning memory care unit, room anticipated available 03/27/25
Assessment / Plan
Assessment / Plan
Physical Exam
General: No pallor, cyanosis, or jaundice.
HEENT: Throat clear. EOMI Normocephalic atraumatic
NECK: Supple. No JVD Carotid Bruits
RESPIRATORY: Lungs clear to auscultation. No crackles wheezes stridor
CVS: S1, S2 normal. RRR. No murmur, rub or gallop.
ABDOMEN: Soft, non-tender. No distension. BS+/normal.
EXTREMITIES: No peripheral cyanosis or edema
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 Able to perform immediate recall, unable to perform delayed recall.
IMPRESSION:
79M hx dementia, b/l carotid stenosis PAD (has regular follow up visits, with associate studies, with vascular Dr Lobo) CAD stent, HTN, HLD p/w acute agitation confusion/delirium unclear etiology resulting in fall with minor injury to hands, no head
trauma. Typically AOx3 baseline with short term memory issues and confusion. Noted history intermittent visual hallucinations, sundowning, behavioral disturbances at night. Patient also has hx seasonal allergies for which he typically takes
Claritin daily. Medications managed by who lives with him
PLAN:
#Acute Delirium Dementia vs progressive Dementia with behavioral disturbances
med/surg
ST/PT/OT eval appreciated outpt therapy recommended
fall precautions
CT Head appreciated no acute Abn's
Brain MRI appreciated no acute abn's
EKGs reviewed appreciated consistently NSR, no significant QT prolongation
prn risperidone remains available
Psych eval appreciated risperidone titrated up to 0.25 mg morning and 0.5 mg bedtime
Non-violent restraints 1:1 prn agitation, low dose IV haldol if absolutely necessary
Family interested in memory care placement, case mgmt eval appreciated placement pending
#Right Shoulder Pain
Likely arthritis
Lidocaine patch, bengay-like cream, and tylenol prn
#Mild Hypernatremia
#Mild Hyperkalemia
monitor, possibly dehydration, received IVF bolus in ED
electrolyte abn's since resolved
#HTN
cont home metoprolol XL with holding parameters, increased to 25 mg daily
home losartan briefly held d/t to hyperkalemia since resumed with resolution electrolyte abn
monitor and titrate antihypertensive regimen as necessary
#HLD
#CAD hx stent
cont ASAS statin
#Allergic Rhinitis, itchy/watery eyes
hold Home claritin for now, possible anticholinergic effects exacerbating confusion delirium
Artificial Tears supportive care
#B/L Carotid Stenosis
#PAD
cont outpt follow up with Vascular
DVT ppx Lovenox
Full Code
Case mgmt Consult Appreciated discharge planning Memory Care Unit patient accepted but no bed till 03/27/25
discussed with patient, patient's Marie, and patient's Cherry
I spent a total of 35 minutes with the patient or on the floor. More than 50% of this time involved counseling and coordination of care.
Anticipated Discharge: > 48 hours
Subjective/Interval History
-
Date of Service: March 24, 2025
No acute distress, overall reports feeling well, denies shoulder pain at this time. Family ( Marie and daughter Cherry) present during evaluation.
Objective Data
-
Vital Signs:
Vital Signs
Temp Pulse Resp BP Pulse Ox
98.4 F 90 18 133/76 95
03/24/25 07:07 03/24/25 08:35 03/24/25 07:07 03/24/25 08:35 03/24/25 07:07
I&O
03/23/25 03/24/25 03/25/25
06:59 06:59 06:59
Intake Total 120 / 120 720 / 720
Balance 120 / 120 720 / 720
--- NOTE | 2025-03-24 12:08 | PTCARENOTE ---
Assumed care of pt from previous nurse. Pt reports pain to right shoulder as tolerable. Pt awaiting placement, pt call rogers is within reach, pt does not ring marni. rounding in place, will cont to monitor. bed alarm in place.
[2025-03-24 15:34] VITALS: BP 148/71
[2025-03-24] MEDS: BenGay-Like TOPICAL (16:33)
[2025-03-24] MEDS: LOVENOX 40 MG SC (17:57)
[2025-03-24] MEDS: REMOVE LIDOCAINE PATCH 1 PATCH REMOVE (19:33)
[2025-03-24] MEDS: BenGay-Like 1 APPLIC TOPICAL (21:15)
[2025-03-24] MEDS: RISPERDAL 0.5 MG PO (21:18)
[2025-03-24 23:32] VITALS: BP 173/79
[2025-03-25 00:25] VITALS: BP 136/87
--- NOTE | 2025-03-25 06:28 | W.PN.HOSP.TC ---
Today's Communication/Plan
-
see a/p
Assessment / Plan
Assessment / Plan
Physical Exam
General: No pallor, cyanosis, or jaundice.
HEENT: Throat clear. EOMI Normocephalic atraumatic
NECK: Supple. No JVD Carotid Bruits
RESPIRATORY: Lungs clear to auscultation. No crackles wheezes stridor
CVS: S1, S2 normal. RRR. No murmur, rub or gallop.
ABDOMEN: Soft, non-tender. No distension. BS+/normal.
EXTREMITIES: No peripheral cyanosis or edema
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 Able to perform immediate recall, unable to perform delayed recall.
IMPRESSION:
79M hx dementia, b/l carotid stenosis PAD (has regular follow up visits, with associate studies, with vascular Dr Lobo) CAD stent, HTN, HLD p/w acute agitation confusion/delirium unclear etiology resulting in fall with minor injury to hands, no head
trauma. Typically AOx3 baseline with short term memory issues and confusion. Noted history intermittent visual hallucinations, sundowning, behavioral disturbances at night. Patient also has hx seasonal allergies for which he typically takes
Claritin daily. Medications managed by who lives with him
PLAN:
#Acute Delirium Dementia vs progressive Dementia with behavioral disturbances
med/surg
ST/PT/OT eval appreciated outpt therapy recommended
fall precautions
03/19 CT Head appreciated no acute Abn's
03/21 Brain MRI appreciated no acute abn's
EKGs reviewed appreciated consistently NSR, no significant QT prolongation
prn risperidone remains available
Psych eval appreciated risperidone titrated up to 0.25 mg morning and 0.5 mg bedtime
Non-violent restraints 1:1 prn agitation, low dose IV haldol if absolutely necessary
patient since improved, has not required prn risperidone since 03/20/25
Family interested in memory care placement, case mgmt evsourav appreciated accepted [facility] earliest room available however 03/27/25
#Right Shoulder Pain
Likely arthritis
Lidocaine patch, tylenol prn (last required 03/22/25)
#Mild Hypernatremia
#Mild Hyperkalemia
possibly dehydration, received IVF bolus in ED
electrolyte abn's since resolved
#HTN
cont home metoprolol XL with holding parameters, increased to 25 mg daily
home losartan briefly held d/t to hyperkalemia since resumed with resolution electrolyte abn
monitor and titrate antihypertensive regimen as necessary
#HLD
#CAD hx stent
cont ASAS statin
#Allergic Rhinitis, itchy/watery eyes
hold Home claritin for now, possible anticholinergic effects exacerbating confusion delirium
Artificial Tears supportive care
#B/L Carotid Stenosis
#PAD
Recent Outpt Carotid US 03/13/25 50-69% stenosis Rt ICA, >70% stenosis Lt ICA
cont outpt follow up with Vascular Dr Lobo
DVT ppx Lovenox
Full Code
Case mgmt Consult Appreciated discharge planning Memory Care Unit patient accepted but no bed till 03/27/25
03/24 discussed with patient's Marie and patient's daughter Cherry at bedside
I spent a total of 35 minutes with the patient or on the floor. More than 50% of this time involved counseling and coordination of care.
Anticipated Discharge: 24 - 48 hours
Subjective/Interval History
-
Date of Service: March 25, 2025
No acute distress, appears comfortable at this time, ambulating without need for assist device. Confused but pleasant/cooperative
Objective Data
-
Vital Signs:
Vital Signs
Temp Pulse Resp BP Pulse Ox
97.8 F 90 18 136/87 97
03/24/25 23:32 03/24/25 23:32 03/24/25 23:32 03/25/25 00:25 03/24/25 23:32
I&O
03/23/25 03/24/25 03/25/25
06:59 06:59 06:59
Intake Total 120 / 120 720 / 720 960 / 960
Balance 120 / 120 720 / 720 960 / 960
[2025-03-25 07:35] VITALS: BP 173/86
[2025-03-25] MEDS: LIDOCAINE 4% PATCH 1 PATCH TOPICAL (07:38)
[2025-03-25] MEDS: BenGay-Like TOPICAL ×2 (07:38→15:15)
[2025-03-25] MEDS: PROSCAR 5 MG PO (07:39)
[2025-03-25] MEDS: COZAAR 25 MG PO (07:39)
[2025-03-25] MEDS: RISPERDAL 0.25 MG PO (07:39)
[2025-03-25] MEDS: TOPROL XL 25 MG PO (07:39)
[2025-03-25] MEDS: REFRESH EYE DROPS (PF) 1 DROPS OPHTH ×3 (07:39→21:32)
[2025-03-25] MEDS: ASPIR LOW (ENTERIC COATED) 81 MG PO (07:40)
[2025-03-25] MEDS: CRESTOR 20 MG PO (07:40)
[2025-03-25] MEDS: THERAGRAN 1 TABLET PO (07:40)
[2025-03-25 11:43] VITALS: BP 144/82
--- NOTE | 2025-03-25 13:41 | PTCARENOTE ---
Pt confused but pleasant/cooperative. Can be impulsive and gets out of bed/chair w/o ringing but is redirectable - alarms in place. Pt ambulated around department and is standby assist.
[2025-03-25 15:15] VITALS: BP 154/72
[2025-03-25] MEDS: LOVENOX 40 MG SC (21:31)
[2025-03-25] MEDS: RISPERDAL 0.5 MG PO (21:32)
[2025-03-25] MEDS: REMOVE LIDOCAINE PATCH 1 PATCH REMOVE (21:32)
[2025-03-25] MEDS: REFRESH EYE DROPS (PF) OPHTH (22:39)
[2025-03-25 23:00] VITALS: BP 132/66
[2025-03-26 08:06] VITALS: BP 174/76
[2025-03-26 08:37] VITALS: BP 136/88
[2025-03-26] MEDS: COZAAR 25 MG PO (09:17)
[2025-03-26] MEDS: CRESTOR 20 MG PO (09:17)
[2025-03-26] MEDS: RISPERDAL 0.25 MG PO (09:18)
[2025-03-26] MEDS: PROSCAR 5 MG PO (09:18)
[2025-03-26] MEDS: THERAGRAN 1 TABLET PO (09:18)
[2025-03-26] MEDS: REFRESH EYE DROPS (PF) 1 DROPS OPHTH ×4 (09:19→21:00)
[2025-03-26] MEDS: LIDOCAINE 4% PATCH 1 PATCH TOPICAL (09:20)
[2025-03-26] MEDS: TOPROL XL 25 MG PO (09:20)
[2025-03-26] MEDS: ASPIR LOW (ENTERIC COATED) 81 MG PO (09:20)
--- NOTE | 2025-03-26 13:49 | W.PN.HOSP.TC ---
Today's Communication/Plan
-
Assessment / Plan
Assessment / Plan
Physical Exam
General: No pallor, cyanosis, or jaundice.
HEENT: Throat clear. EOMI Normocephalic atraumatic
NECK: Supple. No JVD Carotid Bruits
RESPIRATORY: Lungs clear to auscultation. No crackles wheezes stridor
CVS: S1, S2 normal. RRR. No murmur, rub or gallop.
ABDOMEN: Soft, non-tender. No distension. BS+/normal.
EXTREMITIES: No peripheral cyanosis or edema
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 Able to perform immediate recall, unable to perform delayed recall.
IMPRESSION:
79M hx dementia, b/l carotid stenosis PAD (has regular follow up visits, with associate studies, with vascular Dr Lobo) CAD stent, HTN, HLD p/w acute agitation confusion/delirium unclear etiology resulting in fall with minor injury to hands, no head
trauma. Typically AOx3 baseline with short term memory issues and confusion. Noted history intermittent visual hallucinations, sundowning, behavioral disturbances at night. Patient also has hx seasonal allergies for which he typically takes
Claritin daily. Medications managed by who lives with him
PLAN:
#Acute Delirium Dementia vs progressive Dementia with behavioral disturbances
- ST/PT/OT eval appreciated outpt therapy recommended
- fall precautions
- 03/19 CT Head appreciated no acute Abn's
- 03/21 Brain MRI appreciated no acute abn's
- EKGs reviewed appreciated consistently NSR, no significant QT prolongation
- Psych eval appreciated, risperidone titrated up to 0.25 mg morning and 0.5 mg bedtime, additional as needed
- patient improved, has not required prn risperidone since 03/20/25
- Family interested in memory care placement, case mgmt evsourav appreciated accepted [facility], plan for dispo tomorrow Tu03/27/25
#Right Shoulder Pain
Likely arthritis
Lidocaine patch, tylenol prn (last required 03/22/25)
#Mild Hypernatremia
#Mild Hyperkalemia
possibly dehydration, received IVF bolus in ED
electrolyte abn's since resolved
#HTN
cont home metoprolol XL with holding parameters, increased to 25 mg daily
home losartan briefly held d/t to hyperkalemia since resumed with resolution electrolyte abn
monitor and titrate antihypertensive regimen as necessary
#HLD
#CAD hx stent
cont ASA and statin
#Allergic Rhinitis, itchy/watery eyes
hold Home claritin for now, possible anticholinergic effects exacerbating confusion delirium
Artificial Tears supportive care
#B/L Carotid Stenosis
#PAD
Recent Outpt Carotid US 03/13/25 50-69% stenosis Rt ICA, >70% stenosis Lt ICA
cont outpt follow up with Vascular Dr Lobo
DVT ppx Lovenox
Full Code
Patient accepted to memory care unit, planning dispo 03/27/25
I spent a total of 35 minutes with the patient care and management
Anticipated Discharge: Within 24 hours
Subjective/Interval History
-
Date of Service: March 26, 2025
Patient was seen and examined at bedside this morning. No acute distress and no acute events overnight.
Objective Data
-
Vital Signs:
Vital Signs
Temp Pulse Resp BP Pulse Ox
98.3 F 75 18 176/76 98
03/26/25 08:06 03/26/25 08:06 03/26/25 08:06 03/26/25 09:20 03/26/25 08:15
I&O
03/25/25 03/26/25 03/27/25
06:59 06:59 06:59
Intake Total 960 / 960 900 / 900
Output Total 300 / 300
Balance 960 / 960 900 / 900 -300 / -300
Review of Systems
-
Unable to obtain full review of systems at this time due to: Dementia
Physical Exam
-
General: No Apparent Distress
--- NOTE | 2025-03-26 14:39 | CM ---
CM reviewed pt with Dr Garcia- medically ready for dc
Call with [facility] admissions/Elizabeth [phone]
They can accept pt for a new admission tomorrow morning
Preferred [facility] provider is [facility] is pharmacy provider- added to chart
Referral sent to [facility] via [facility]
VN order on chart
Medical necessity completed and BLS transport scheduled for 1000 pickup tomorrow morning
Update to dtr and spouse
IMM verbally reviewed
Dr Taniya Zaragoza in agreement with plan
Discharge Disposition- [facility] tomorrow 03/27, 10am pickup with [facility]
[phone] Fax- [phone]
[facility] Fax- [phone]
[2025-03-26 15:41] VITALS: BP 140/74
[2025-03-26] MEDS: LOVENOX 40 MG SC (17:22)
[2025-03-26] MEDS: REMOVE LIDOCAINE PATCH 1 PATCH REMOVE (19:12)
[2025-03-26] MEDS: RISPERDAL 0.5 MG PO (21:00)
[2025-03-26 23:08] VITALS: BP 123/62
[2025-03-27] MEDS: COZAAR 25 MG PO (08:04)
[2025-03-27] MEDS: CRESTOR 20 MG PO (08:04)
[2025-03-27] MEDS: LIDOCAINE 4% PATCH 1 PATCH TOPICAL (08:04)
--- NOTE | 2025-03-27 08:04 | W.DCSUMMARY ---
Discharge Summary
Discharge Data
Date of Admission: 03/21/25
Date of Discharge: 03/27/25
Total time spent discharging patient (in min): 45
-
Pending Results: No
Hospital Course
Mr. Armando is a 79-year-old male with a medical history of dementia, b/l carotid stenosis, PAD (has regular follow up with vascular Dr Lobo), CAD (PCI with stent), and HTN who presented with acute agitation and confusion resulting in fall with minor
injury to hands, no head trauma. This is believed to be a result of his progressing dementia. He had been typically AOx3 baseline with short term memory issues and confusion. However more recently he had been experiencing intermittent visual
hallucinations, sundowning, behavioral disturbances at night. Patient also has a history of seasonal allergies for which he typically takes Claritin daily. Medications managed by who lives with him. CT and MRI of his brain showed no acute
abnormalities. He was evaluated by psychiatry who started him on risperidone with significant improvement in his agitation. His home Claritin was discontinued. Family was interested in placement in a memory care facility which has been arranged
at [facility]. He was medically stable at time of discharge to the memory care unit.
General: No pallor, cyanosis, or jaundice.
HEENT: Throat clear. EOMI Normocephalic atraumatic
NECK: Supple. No JVD Carotid Bruits
RESPIRATORY: Lungs clear to auscultation. No crackles wheezes stridor
CVS: S1, S2 normal. RRR. No murmur, rub or gallop.
ABDOMEN: Soft, non-tender. No distension. BS+/normal.
EXTREMITIES: No peripheral cyanosis or edema
ALLERGIST IMMUNOLOGIST: AOx2 disoriented to time, significant short term memory issues noted conversant coherent for the most part. Able to perform immediate recall, unable to perform delayed recall.
Discharge Plan
-
Patient Disposition: Other
Discharge Diagnosis/Procedures: Acute Delirium Dementia vs progressive Dementia with behavioral disturbances
Stroke Ruled Out
Right Shoulder Arthritis
Hypertension
Hyperlipidemia
History Coronary Artery Disease stents
Allergic Rhinitis
Bilateral Carotid Stenosis
Peripheral Arterial Disease
Condition: Fair
Diet: Regular
Activity: As tolerated
Driving Restrictions: No driving
Bathing Restrictions: None
Blood Work: Repeat CBC and CMP with primary care provider in 1 week of discharge.
Activity Restrictions/Additional Instructions:
Follow up with primary care provider in 1 week of discharge
Claritin discontinued due to concerns exacerbation dementia/confusion
Risperdal prescribed 0.25 mg morning and 0.5 mg bedtime for agitation/confusion associated with Dementia.
Please take medications as prescribed/recommended and follow up with primary care provider and/or other healthcare provider involved in your care for refills and/or further adjustment to your medication regimen as necessary.
Mr. Armando is a 79-year-old male with a medical history of dementia, b/l carotid stenosis, PAD (has regular follow up with vascular Dr Lobo), CAD (PCI with stent), and HTN who presented with acute agitation and confusion resulting in fall with minor
injury to hands, no head trauma. This is believed to be a result of his progressing dementia. He had been typically AOx3 baseline with short term memory issues and confusion. However more recently he had been experiencing intermittent visual
hallucinations, sundowning, behavioral disturbances at night. Patient also has a history of seasonal allergies for which he typically takes Claritin daily. Medications managed by who lives with him. CT and MRI of his brain showed no acute
abnormalities. He was evaluated by psychiatry who started him on risperidone with significant improvement in his agitation. His home Claritin was discontinued. Family was interested in placement in a memory care facility which has been arranged
at [facility]. He was medically stable at time of discharge to the memory care unit.
Referrals:
Juan Aggarwal MD [Family Provider, [facility]] - in one week
Prescriptions:
New
Refresh Classic (PF) 1.4-0.6 % Dropperette
1 drp ophthalmic (eye) QID PRN (Reason: itchy eyes) Qty: 50 0RF
risperidone 0.25 mg Tablet
0.25 mg PO DAILY Qty: 30 0RF
metoprolol succinate 25 mg Tablet Extended Release 24 Hr
25 mg PO DAILY Qty: 30 0RF
risperidone 0.5 mg Tablet
0.5 mg PO HS Qty: 30 0RF
Continued
multivitamin Tablet
1 tab PO DAILY
aspirin 81 mg Tablet,Delayed Release (Dr/Ec)
81 mg PO DAILY
losartan 25 mg Tablet
25 mg PO DAILY
finasteride 5 mg Tablet
5 mg PO DAILY
rosuvastatin 20 mg Tablet
20 mg PO DAILY
Discontinued
metoprolol succinate 25 mg Tablet Extended Release 24 Hr
12.5 mg PO DAILY
loratadine 10 mg Tablet
10 mg PO DAILY PRN (Reason: seasonal allergies)
Discharge Orders:
Discharge Patient (As Directed); Ordered 03/27/25
Ordered By: Han Garcia
Discharge Date and Time
Discharge Date/Time: 03/27/25 13:00
Print Language: TELUGU
[2025-03-27] MEDS: REFRESH EYE DROPS (PF) 1 DROPS OPHTH (08:16)
[2025-03-27] MEDS: TOPROL XL 25 MG PO (08:17)
[2025-03-27] MEDS: THERAGRAN 1 TABLET PO (08:17)
[2025-03-27] MEDS: ASPIR LOW (ENTERIC COATED) 81 MG PO (08:17)
[2025-03-27] MEDS: RISPERDAL 0.25 MG PO (08:17)
[2025-03-27] MEDS: PROSCAR 5 MG PO (08:17)
[2025-03-27 08:22] VITALS: BP 129/69
--- NOTE | 2025-03-27 08:33 | CM ---
Chart reviewed and patient is for transfer to [place] today. 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
Discharge Disposition- [facility] tomorrow 03/27, 10am pickup with [facility]
[phone] Fax- [phone]
[facility] Fax- [phone]
== END 2025-03-27 13:00 | disposition home health service (06) | DRG 884 ==
LOC: 4 WEST ACU 08:38
PROVIDERS: Nurse Practitioner; Student in an Organized Health Care Education/Training Program; ADMITTING PHYSICIAN Internal Medicine; ATTENDING PHYSICIAN Internal Medicine; EMERGENCY PHYSICIAN Emergency Medicine; FAMILY PHYSICIAN Family Medicine; OTHER PHYSICIAN Nurse Practitioner Family
DX: F03.911 Unspecified dementia, unspecified severity, with agitation (principal); F05 Delirium due to known physiological condition; E87.0 Hyperosmolality and hypernatremia; M19.011 Primary osteoarthritis, right shoulder; I10 Essential (primary) hypertension; I25.10 Atherosclerotic heart disease of native coronary artery without angina pectoris; Z95.5 Presence of coronary angioplasty implant and graft; I73.9 Peripheral vascular disease, unspecified; E78.00 Pure hypercholesterolemia, unspecified; W10.9XXA Fall (on) (from) unspecified stairs and steps, initial encounter; E87.5 Hyperkalemia; Z87.891 Personal history of nicotine dependence; Z88.0 Allergy status to penicillin; Z79.899 Other long term (current) drug therapy; Z79.82 Long term (current) use of aspirin
CPT/HCPCS: 70450; 70551; 80048; 80053; 81003; 81015; 82550; 83735; 85025; 85027; 87070; 92523; 92610; 93005; 96360; 97162; 97166; 97530; 99285